=== PATIENT | male | born 1960 | race African-American/Black ===

== ENCOUNTER 2021-06-14 08:48 | Day surgery (SDC) | payer BC ==
[2021-06-10 15:24] VITALS: BMI 23.0
[2021-06-14] MEDS ORDERED: PROPOFOL 20 ML ONE (09:42)
[2021-06-14] MEDS ORDERED: LIDOCAINE HCL/PF 2% SDV 5ML VIAL ONE (09:42)
[2021-06-14 11:01] VITALS: TEMP 98.2
[2021-06-14 11:08] VITALS: BP 131/67; PULSE 63
== END 2021-06-14 11:13 | disposition home or self-care (01) ==
LOC: FASU-ENDO 08:48
PROVIDERS: ATTEND Internal Medicine Gastroenterology
PROC: 0DBL8ZX Excision of Transverse Colon, Via Natural or Artificial Opening Endoscopic, Diagnostic (ICD-10-PCS; principal; 2021-06-14 10:13)
DX: Z12.11 Encounter for screening for malignant neoplasm of colon (principal); Z83.71 Family history of colonic polyps; D12.3 Benign neoplasm of transverse colon
CPT/HCPCS: 82962; 88305-TC

== ENCOUNTER 2023-08-06 05:14 | Emergency (ER) | payer BC ==
[2023-08-06 05:20] VITALS: BMI 23.0
[2023-08-06 05:33] VITALS: BP 135/94; PULSE 94; RESP 18; TEMP 97.3
[2023-08-06] MEDS: SODIUM CHLORIDE 1,000 ML IV ONE (05:54)
[2023-08-06 07:46] LABS: HEMATOCRIT 47.7 % (35.4-49); HEMOGLOBIN 15.5 GM/dL (11.7-16.9); MCH 26.8 pg (25.7-33.7); MCHC 32.4 g/dl (32.0-35.9); MEAN CELL VOLUME 82.5 fl (80-96); MEAN PLT VOLUME 8.1 fl (7.5-11.1); PLATELET COUNT 255 10^3/uL (134-434); RBC 5.78 M/mm3 (4.00-5.60); RDW 14.3 % (11.9-15.9); WHITE BLOOD COUNT 6.1 K/mm3 (4.0-10.0)
[2023-08-06 08:40] LABS: ALBUMIN 4.2 g/dl (3.4-5.0); BILIRUBIN,TOTAL 0.9 mg/dL (0.2-1); BLOOD UREA NITROGEN 26.6 mg/dL (7-18); CALCIUM 9.4 mg/dL (8.5-10.1); CREATININE 1.2 mg/dL (0.55-1.3); PHOSPHOROUS 3.5 mg/dL (2.5-4.9); POTASSIUM 3.7 mmol/L (3.5-5.1)
== END 2023-08-06 09:14 | disposition home or self-care (01) ==
LOC: FER 05:14
PROC: 3E0337Z Introduction of Electrolytic and Water Balance Substance into Peripheral Vein, Percutaneous Approach (ICD-10-PCS; principal; 2023-08-06)
DX: E86.0 Dehydration (principal); R19.7 Diarrhea, unspecified; R53.1 Weakness
CPT/HCPCS: 36415; 80053; 83735; 84100; 85027; 99284-25